=== PATIENT | male | born 1955 | race African-American/Black ===

== ENCOUNTER 2022-11-22 07:17 | Outpatient (CLI) | payer MEDICARE ==
[2022-11-22] MEDS ORDERED: Iopamidol 300 61% 100 ML VIAL FS ONE (08:44)
== END 2022-11-22 07:18 | disposition home or self-care (01) ==
LOC: CSHCT 07:17
PROVIDERS: ATTEND Urology
DX: C61 Malignant neoplasm of prostate (principal); R35.0 Frequency of micturition; R18.8 Other ascites
CPT/HCPCS: 74178; Q9967

== ENCOUNTER 2023-01-10 11:16 | Outpatient (CLI) | payer MEDICARE | END 2023-01-10 11:17 | disposition home or self-care (01) | LOC: CSHCT 11:16 | PROVIDERS: ATTEND Internal Medicine | DX: Z12.2 Encounter for screening for malignant neoplasm of respiratory organs (principal); F17.210 Nicotine dependence, cigarettes, uncomplicated; Z13.6 Encounter for screening for cardiovascular disorders | CPT/HCPCS: 71271; 76706 ==

== ENCOUNTER 2023-10-19 07:28 | Outpatient (CLI) | payer MEDICARE | END 2023-10-19 07:29 | disposition home or self-care (01) | LOC: CSHCT 07:28 | PROVIDERS: ATTEND Urology | DX: R31.29 Other microscopic hematuria (principal); K80.20 Calculus of gallbladder without cholecystitis without obstruction | CPT/HCPCS: 74178; 82565 ==

== ENCOUNTER 2024-08-13 07:12 | Outpatient (CLI) | payer MEDICARE | END 2024-08-13 07:13 | disposition home or self-care (01) | LOC: CSHCT 07:12 | PROVIDERS: ATTEND Internal Medicine | DX: Z12.2 Encounter for screening for malignant neoplasm of respiratory organs (principal); F17.218 Nicotine dependence, cigarettes, with other nicotine-induced disorders; J44.9 Chronic obstructive pulmonary disease, unspecified | CPT/HCPCS: 71271 ==

== ENCOUNTER 2025-06-10 07:15 | Outpatient (CLI) | payer MEDICARE | END 2025-06-10 07:16 | disposition home or self-care (01) | LOC: CSHCT 07:15 | PROVIDERS: ATTEND Internal Medicine | DX: R05.3 Chronic cough (principal); R63.4 Abnormal weight loss; J94.8 Other specified pleural conditions | CPT/HCPCS: 71250 ==